=== PATIENT | female | born 1975 | race Caucasian/White ===

== ENCOUNTER 2019-02-18 21:25 | Emergency (ER) | payer BC, MEDICAID ==
[~2019-02-18] VITALS: Ht 157.5 cm; Wt 54.4 kg
[2019-02-18 21:37] VITALS: BP_SYST 88
--- NOTE | 2019-02-18 21:42 | NUR ---
Patient to ER bed 08 to gown for evaluation. Side rails up.
--- NOTE | 2019-02-18 21:44 | NUR ---
ER MD Krishnan at bedside for medical evaluation.
--- NOTE | 2019-02-18 21:45 | NUR ---
Patient AOx4, ambulatory, presents to ER with complaint of bilateral wrist pain s/p fall while dancing. Patient states she was at a green party, midly intoxicated and fell landing on both wrists. Visible swelling noted. Patient states she did not medicate for pain. No other symptoms or complaints.
--- NOTE | 2019-02-18 22:23 | NUR ---
extrusion technician at bedside.
[2019-02-18] MEDS ORDERED: MORPHINE 4 MG/ML INJ. SYRINGE IM ONE (22:45)
[2019-02-18] MEDS ORDERED: IBUPROFEN 800 MG TABLET PO ONE (22:45)
--- NOTE | 2019-02-18 22:45 | NUR ---
Patient refused Morphine 2mg IM. MD Krishnan made aware. Medication wasted.
--- NOTE | 2019-02-18 23:25 | NUR ---
No adverse reactions noted after medication administration. Will continue to monitor.
[2019-02-18 23:28] VITALS: BP_SYST 102
--- NOTE | 2019-02-18 23:28 | NUR ---
Patient given written and verbal discharge instructions and verbalizes understanding. ER MD discussed with patient the results and treatment provided. Patient in stable condition. ID arm band removed. Rx of Motrin and Dubach 5/325mg given. Patient educated on pain management and to follow up with PMD. Pain Scale 2/10 tolerable to patient. Opportunity for questions provided and answered. Medication side effect fact sheet provided.
== END 2019-02-18 23:28 | disposition home or self-care (01) ==
LOC: SED 21:25
DX: S52.531A Colles' fracture of right radius, initial encounter for closed fracture (principal); S52.532A Colles' fracture of left radius, initial encounter for closed fracture; W01.0XXA Fall on same level from slipping, tripping and stumbling without subsequent striking against object, initial encounter; Y93.89 Activity, other specified; Y92.89 Other specified places as the place of occurrence of the external cause; Y99.8 Other external cause status
CPT/HCPCS: 29125; 73110; 99283; J2270